=== PATIENT | male | born 1935 | race Hispanic/Latino ===

== ENCOUNTER 2016-09-13 09:16 | Outpatient (CLI) | payer MEDICARE, OTHER ==
--- NOTE | 2016-09-13 10:24 | XRay Report ---
Chest 2 views. Findings: The heart and pulmonary vessels are normal. The lungs are clear. There is no pleural fluid. Impression: No acute findings.
== END 2016-09-13 09:17 | disposition home or self-care (01) ==
LOC: XRAY 09:16
PROVIDERS: ATTEND Internal Medicine Hematology & Oncology
DX: Z00.00 Encounter for general adult medical examination without abnormal findings (principal)
CPT/HCPCS: 71020

== ENCOUNTER 2020-05-14 13:28 | Outpatient (CLI) | payer MEDICARE, OTHER ==
--- NOTE | 2020-05-14 19:05 | XRay Report ---
Left shoulder 4 views INDICATION: Left shoulder pain. IMPRESSION: Moderate subcutaneous edema in the left axillary region, nonspecific. Mild degenerative c hanges of the left JAGDEEP and left glenohumeral joints. Signer Name: Javed Mckeon MD Signed: 05/14/2020 7:00 PM Workstation Name: [id number]
== END 2020-05-14 13:29 | disposition home or self-care (01) ==
LOC: XRAY 13:28
PROVIDERS: ATTEND Internal Medicine Hematology & Oncology
DX: M19.012 Primary osteoarthritis, left shoulder (principal); R60.0 Localized edema